=== PATIENT | female | born 1970 | race Caucasian/White ===

== ENCOUNTER 2021-09-06 11:09 | Inpatient (IN) | payer MEDICAID ==
[2021-09-06] VITALS (14 sets, daily range): BP systolic 82–167; BP diastolic 44–91
[~2021-09-06] VITALS: Ht 167.6 cm; Wt 63.0 kg
--- NOTE | 2021-09-06 11:09 | NUR ---
PT MARCELLUS 86 FROM [facility] C/O FEVER AND ELEVATED HEART. PT IS AAOX0, ON VENT VIA TRACH, HOOKED TO HUMAN RESOURCES OFFICER, KEPT RESTED AND COMFORTABLE. WILL CONTINUE TO MONITOR.
--- NOTE | 2021-09-06 11:12 | NUR ---
COOLING MEASURES IN PLACE, INCLUDING ICE PACKS PLACED ON FOREHEAD, GROIN, UNDERARMS. BLANKET PLACED BETWEEN ICE PACKS TO PREVENT SKIN IRRITATION. WILL CONTINUE TO MONITOR AND ROTATE AREAS TO PREVENT SKIN IRRITATION.
[2021-09-06] MEDS ORDERED: ACETAMINOPHEN 650 MG/SUPP.RECT RC ONE ×2 (11:14→11:30)
--- NOTE | 2021-09-06 11:20 | NUR ---
IV LINE ESTABLISHED BLOOD DRAWN AND SENT TO LAB.
--- NOTE | 2021-09-06 11:27 | NUR ---
MOVE SHEET SUBMITTED AND CALLED FOR TELE BED.
[2021-09-06] MEDS ORDERED: IBUPROFEN SUSP 100 MG/5 ML UDC PO ONE (11:30)
[2021-09-06] MEDS ORDERED: IV NS 0.9% 1,000 ML BAG IV ONE ×2 (11:30→13:00)
[2021-09-06] MEDS ORDERED: FERR300L GT (11:32)
[2021-09-06] MEDS ORDERED: CRAN425C6 GT (11:32)
[2021-09-06] MEDS ORDERED: LANS30CA56 GT (11:32)
[2021-09-06] MEDS ORDERED: ACID1TAB12 GT (11:32)
[2021-09-06] MEDS ORDERED: MIDO5TAB4 GT (11:32)
[2021-09-06] MEDS ORDERED: TRAM50TA2 GT (11:32)
[2021-09-06] MEDS ORDERED: DOCU-141 GT (11:32)
[2021-09-06] MEDS ORDERED: ASCO-352 PO (11:32)
[2021-09-06] MEDS ORDERED: BISA10SU11 RC (11:32)
[2021-09-06] MEDS ORDERED: CRAN3875 GT (11:32)
[2021-09-06] MEDS ORDERED: ASPI-1169 GT (11:32)
[2021-09-06] MEDS ORDERED: COLC0.6C3 GT (11:32)
[2021-09-06] MEDS ORDERED: IPRA0.2S9 IH ×2 (11:32)
[2021-09-06] MEDS ORDERED: ATOR10TA GT (11:32)
[2021-09-06] MEDS ORDERED: MAGN400O6 GT (11:32)
[2021-09-06] MEDS ORDERED: CARV3.122 GT (11:32)
[2021-09-06] MEDS ORDERED: ENOX40DI SQ (11:32)
[2021-09-06] MEDS ORDERED: NUTR1PAC14 GT (11:32)
[2021-09-06] MEDS ORDERED: VALP250S4 GT (11:32)
[2021-09-06] MEDS ORDERED: BALS5OIN TP (11:32)
[2021-09-06] MEDS ORDERED: MULT-447 GT (11:32)
[2021-09-06] MEDS ORDERED: NUTR250L58 GT (11:32)
[2021-09-06] MEDS ORDERED: CHLO473M5 MM (11:32)
[2021-09-06] MEDS ORDERED: NA P133E RC (11:32)
[2021-09-06] MEDS ORDERED: ALBU2.5V38 IH ×2 (11:32)
[2021-09-06] MEDS ORDERED: IBUPROFEN SUSP 100 MG/5 ML UDC ONE (11:41)
--- NOTE | 2021-09-06 11:48 | NUR ---
RT RECD PT TRACHED [place] 8 CUFFED VIA EMS FOR SEPSIS, TACHYCARDIA WAS ON MECH VENT ON SUBACUTE PER ORDERED SETTINGS AC 14 450 +5 40% SX THICK YELLOW SMALL SECRETIONS VENT PLUGGED IN RED OUTLET, BAG AND MASK AT HOB WILL CONT TO MONITOR Addendum: 09/06/21 at 1150 by MAKI JUAN RT Amended: Links added.
[2021-09-06] MEDS ORDERED: MEROPENEM 1,000 MG in IV NS 0.9% 50 ML IV ONE (12:00)
[2021-09-06 12:02] LABS: BASOPHILS # (AUTO) 0.1 K/uL (0.0-0.2); BASOPHILS % (AUTO) 0.2 % (0.0-2.0); HEMATOCRIT 46 % (33-45); HEMOGLOBIN 14.9 g/dL (11.5-14.8); LYMPHOCYTES # (AUTO) 0.7 K/uL (0.8-4.8); LYMPHOCYTES % (AUTO) 2.7 % (20.0-44.0); MEAN CORPUSCULAR HGB CONC 33 g/dl (31.0-36.0); MEAN CORPUSCULAR VOLUME 85 fL (82-100); MONOCYTES # (AUTO) 0.2 K/uL (0.1-1.30); MONOCYTES % (AUTO) 0.7 % (2.0-12.0); NEUTROPHILS # (AUTO) 25.9 K/uL (1.8-8.9); NEUTROPHILS % (AUTO) 96.4 % (43.0-81.0); PLATELET COUNT (AUTO) 545 K/uL (150-450); WHITE BLOOD COUNT (AUTO) 26.9 K/uL (4.3-11.0)
--- NOTE | 2021-09-06 12:05 | NUR ---
AVALOS CATHETER CHANGED. 200 ML URINE NOTED ON PREVIOUS AVALOS, RED, CLOUDY.
[2021-09-06] MEDS ORDERED: VANCOMYCIN 1 GM in IV D5W 250 ML IV ONE (12:30)
[2021-09-06 12:31] LABS: ALANINE AMINOTRANSFERASE 12 U/L (12-78); ALBUMIN 2.1 g/dL (3.4-5.0); ALKALINE PHOSPHATASE 145 U/L (46-116); ASPARTATE AMINOTRANSFERASE 38 U/L (15-37); BILIRUBIN,DIRECT 0.5 mg/dL (0.0-0.2); BILIRUBIN,TOTAL 0.9 mg/dL (0.2-1.0); CALCIUM, SERUM 10.6 mg/dL (8.5-10.1); CARBON DIOXIDE 21 mmol/L (21-32); CHLORIDE 100 mmol/L (98-107); CREATININE 1.4 mg/dL (0.6-1.3); GLUCOSE 97 mg/dL (74-106); POTASSIUM 5.7 mmol/L (3.5-5.1); SODIUM SERUM 137 mmol/L (136-145); TOTAL PROTEIN, SERUM 8.5 g/dL (6.4-8.2); UREA NITROGEN, BLOOD 47 mg/dL (7-18)
--- NOTE | 2021-09-06 12:40 | NUR ---
URINE SAMPLE OBTAINED AND SENT TO LAB
--- NOTE | 2021-09-06 12:46 | NUR ---
DR. MCLEOD SPEAKING WITH DR. ANGULO
--- NOTE | 2021-09-06 12:49 | NUR ---
CALLED HOUSE SUP FOR PICC LINE.
--- NOTE | 2021-09-06 13:16 | NUR ---
PHARMACY CALLED X2 FOR VANCOMYCIN. SAID WILL DELIVER.
[2021-09-06 13:40] LABS: BILIRUBIN,URINE MODERATE (NEGATIVE); COLOR,URINE RED (YELLOW); LEUKOCYTE ESTERASE ,URINE LARGE (NEGATIVE); NITRITE, URINE POSITIVE (NEGATIVE); PH,URINE 7.5 (5.0-8.0); PROTEIN,URINE >=300 mg/dl (NEGATIVE); UGLUCOSE 100 MG/DL mg/dL (NEGATIVE); UROBILINOGEN,URINE 0.2 EU/dL (0.2)
--- NOTE | 2021-09-06 14:09 | NUR ---
GOT BED 252
--- NOTE | 2021-09-06 14:20 | NUR ---
REPORT GIVEN TO ALBERTO BOYLE. WILL TAKE PT UP AFTER CT.
[2021-09-06 14:26] LABS: RBC,URINE 51-80 /HPF (0-2)
[2021-09-06 14:27] LABS: WBC,URINE TOO NUMEROUS TO COUN /HPF (0-3)
[2021-09-06 14:28] LABS: BACTERIA,URINE Many /HPF (None Seen); SQUAMOUS EPITHELIAL CELL,UR Moderate /HPF (None Seen)
[2021-09-06] MEDS ORDERED: IBUPROFEN 600 MG TABLET PO PRN (14:30)
--- NOTE | 2021-09-06 14:39 | NUR ---
DID NOT TAKE PT TO CT D/T LOW BP 57/41. AWARE. WILL START LEVOPHED.
--- NOTE | 2021-09-06 14:54 | NUR ---
DR ANGULO AT BEDSIDE INSERTING PICC LINE
[2021-09-06] MEDS ORDERED: NOREPINEPHRINE 8 MG in IV NS 0.9% 250 ML IV ONE (15:00)
[2021-09-06] MEDS ORDERED: NOREPINEPHRINE 8 MG in IV NS 0.9% 242 ML IV ONE (15:00)
[2021-09-06] MEDS ORDERED: IPRATROPIUM NEB FS 0.5 MG/2.5 ML AMPUL.NEB IH PRN (15:30)
[2021-09-06] MEDS ORDERED: TRAMADOL HCL 50 MG TABLET GT PRN (15:30)
[2021-09-06] MEDS ORDERED: ALBUTEROL FS 2.5 MG/3 ML VIAL.NEB IH PRN (15:30)
[2021-09-06] MEDS ORDERED: IV NS 0.9% 100 ML IV SCH (15:30)
[2021-09-06] MEDS ORDERED: NA PHOS,M-B/NA PHOS,DI-BA 1 EA ENEMA RC PRN (15:30)
[2021-09-06] MEDS ORDERED: BISACODYL SUPP (10 MG) 10 MG/SUPP.RECT SUPP.RECT RC PRN (15:30)
[2021-09-06] MEDS ORDERED: MAGNESIUM HYDROXIDE 30 ML UDC GT PRN (15:30)
[2021-09-06] MEDS ORDERED: NOREPINEPHRINE 8 MG in IV NS 0.9% 242 ML IV PRN ×2 (15:30→17:00)
--- NOTE | 2021-09-06 15:30 | NUR ---
BP DROPPING. MONITORING PT ON LEVOPHED. BEFORE TRANSPORT. WAITING FOR RT. Addendum: 09/06/21 at 1621 by MATT BP DROPPING. MONITORING PT ON LEVOPHED TO MAKE SURE BP STABLE BEFORE TRANSPORT. WAITING FOR RT.
--- NOTE | 2021-09-06 15:50 | NUR ---
WAITING FOR RT
--- NOTE | 2021-09-06 16:15 | NUR ---
RN NOTE PATIENT RECEIVED ON THE FLOOR, ON MECHANICAL VENTILATION WITH NO SIGNS OF LABORED BREATHING. BLOOD PRESSURE UNSTABLE AND LOW, PATIENT STARTED ON LEVO DRIP IN ER, TITRATED PER PROTOCOL ON THE FLOOR. PATIENT WITH G TUBE IN PLACE, NO FEEDING ORDERED AT THIS TIME. RIGHT FEMORAL PICC LINE, RIGHT WRIST 20G SL AND LEFT WRIST 20G SL IN PLACE, PATENT WITH NO SIGNS OF INFILTRATION. AVALOS CATH IN PLACE. BED LOCKED AND IN LOWEST POSITION, CALL LIGHT WITHIN REACH, 2 SIDE RAILS UP. WILL CONTINUE TO MONITOR.
[2021-09-06] MEDS ORDERED: IV NS 0.9% 1,000 ML IV PRN (16:30)
[2021-09-06] MEDS ORDERED: FERROUS SULFATE UDC 300 MG/5 ML UDC GT SCH (17:00)
[2021-09-06] MEDS ORDERED: CHLORHEXIDINE GLUCONATE 15 ML UDC MM SCH (17:00)
[2021-09-06] MEDS ORDERED: COLCHICINE 0.6 MG TABLET GT SCH (17:00)
[2021-09-06] MEDS ORDERED: Medication Not On Formulary EA (Cran/Vitc/Mannose/Inulin/Brom (Uti-Stat Liquid) 3,875 MG GT SCH (17:00)
[2021-09-06] MEDS ORDERED: Medication Not On Formulary EA (Cranberry Extract (Cranberry) 425 MG) GT SCH (17:00)
[2021-09-06] MEDS ORDERED: NOREPINEPHRINE 32 MG in IV NS 0.9% 218 ML IV PRN (18:00)
--- NOTE | 2021-09-06 18:28 | NUR ---
RN NOTE TEMPERATURE STABLE, 99.7F AT THIS TIME. WILL CONTINUE TO MONITOR.
--- NOTE | 2021-09-06 18:59 | NUR ---
RN NOTE PATIENT REMAINS IN BED, ON MECHANICAL VENTILATION WITH NO SIGNS OF LABORED BREATHING. LEVO DRIP IN ER, TITRATED PER PROTOCOL ON THE FLOOR, BLOOD PRESSURE CURRENTLY MAINTAINED. PATIENT WITH G TUBE IN PLACE, NO FEEDING ORDERED AT THIS TIME. RIGHT FEMORAL PICC LINE, RIGHT WRIST 20G SL AND LEFT WRIST 20G SL IN PLACE, PATENT WITH NO SIGNS OF INFILTRATION. AVALOS CATH IN PLACE. BED LOCKED AND IN LOWEST POSITION, CALL LIGHT WITHIN REACH, 2 SIDE RAILS UP. ALL NEEDS ATTENDED. WILL ENDORSE TO STRIKER OUT NURSE.
[2021-09-06] MEDS ORDERED: IPRATROPIUM NEB FS 0.5 MG/2.5 ML AMPUL.NEB IH SCH (19:30)
[2021-09-06] MEDS ORDERED: ALBUTEROL FS 2.5 MG/3 ML VIAL.NEB IH SCH (19:30)
--- NOTE | 2021-09-06 19:54 | NUR ---
RN NOTE SPOKE WITH DR. MCLEOD REGARDING PT G-TUBE FEEDING. INFORMED DR. MCLEOD THAT WE DO NOT HAVE PEPTAMEN, AND DR. MCLEOD ORDERED NEPRO AT 40 CC/HR CONTINUOUS AND AN ORDER FOR DIETARY CONSULT. ORDER NOTED AND CARRIED OUT.
--- NOTE | 2021-09-06 19:57 | NUR ---
RN NOTE SPOKE WITH DR. MCLEOD REGARDING PT HR BEING IN 135-150 AND PT HAVING TEMPERATURE. ORDERED METOPROLOL 25 MG GT Q8H, AND TO HOLD IF HR <60, TYLENOL 650 MG Q6H PRN FOR TEMPERATURE, AND TO ADMINISTER MIDODRINE SCHEDULED EVEN THOUGH PATIENT ALREADY ON PRESSORS. ORDER NOTED AND CARRIED OUT.
[2021-09-06] MEDS ORDERED: NEPRO 1,000 ML BOTTLE GT PRN (20:00)
--- NOTE | 2021-09-06 20:09 | NUR ---
RN NOTE SPOKE WITH DR. MCLEOD AND MENTIONED THAT PT IS ALLERGIC TO TYLENOL. DR. ESPINOZA ORDERED TO NOT ORDER TYLENOL AND ADMINISTER MOTRIN PER PRN. MOTRIN ALREADY IN EMAR. WILL PROVIDE COOLING MEASURES WELL. ORDER NOTED AND CARRIED OUT.
[2021-09-06] MEDS: METOPROLOL TARTRATE 25 MG TABLET GT SCH ×2 (20:23→21:00)
--- NOTE | 2021-09-06 20:30 | NUR ---
RN NOTE PT TEMPERATURE NOW 99.4. WILL CONTINUE TO MONITOR FOR ANY CHANGES.
--- NOTE | 2021-09-06 20:55 | NUR ---
RN NOTE SPOKE WITH DR. MCLEOD AND MENTIONED THAT PT DID NOT TOLERATE G-TUBE MEDICATION AND HOW PT HR WAS NOW IN 160S-180S. STAT EKG DONE AND REVEALED ANTERIOR LATERAL LARGE CO. DR. MCLEOD ORDERED METOPROLOL 5MG IVP. ADMINISTERED BY RAILROAD DINING CAR STEWARD/STEWARDESS ED.
[2021-09-06] MEDS ORDERED: LORAZEPAM INJ 2 MG/ML VIAL IV PRN (21:00)
[2021-09-06] MEDS ORDERED: MEROPENEM 1 G in IV NS 0.9% 100 ML IV SCH ×4 (21:00)
[2021-09-06] MEDS ORDERED: IV NS 0.9% 500 ML IV ONE (21:00)
[2021-09-06] MEDS ORDERED: METOPROLOL TARTRATE INJ 5 MG/5 ML AMPUL IVP PRN (21:00)
[2021-09-06] MEDS ORDERED: VALPROIC ACID 250 MG/5 ML UDC GT SCH (21:00)
[2021-09-06] MEDS ORDERED: ONDANSETRON HCL/PF 4 MG/2 ML VIAL IV PRN ×2 (21:00)
[2021-09-06] MEDS ORDERED: MIDODRINE HCL (5MG) 5 MG TABLET GT SCH (21:00)
--- NOTE | 2021-09-06 21:48 | NUR ---
RN NOTE PT WENT INTO SINUS CATY/ASYSTOLE. CODE BLUE ACTIVATED. ALL ACLS PROTOCOLS INITIATED. CODE BLUE FORM IN CHART.
--- NOTE | 2021-09-06 21:59 | NUR ---
RN NOTE PATIENT . PRONOUNCED BY ER PHYSICIAN WOLF GAVIRIA. NO FAMILY TO BE NOTIFIED PER [facility]/NO INFO IN CHART/NO ADVANCE DIRECTIVES. POST MORTEM CARE PROVIDED.
[2021-09-06] MEDS ORDERED: PHENYLEPHRINE 50 MG in IV NS 0.9% 245 ML IV PRN (22:00)
[2021-09-06] MEDS ORDERED: ATORVASTATIN 10 MG TABLET GT SCH (22:00)
[2021-09-07] MEDS ORDERED: EPINEPHRINE (1:10,000) SYRINGE 1 MG/10 ML DISP.SYRIN IVP ONE ×2 (00:59)
[2021-09-07] MEDS ORDERED: CALCIUM CHLORIDE 1,000 MG/10 ML DISP.SYRIN IV ONE ×2 (00:59)
[2021-09-07] MEDS ORDERED: SODIUM BICARBONATE SYR 50 MEQ/50 ML DISP.SYRIN IV ONE (00:59)
[2021-09-07] MEDS ORDERED: NOREPINEPHRINE 8MG/250ML D5W RTU IV ONE (00:59)
[2021-09-07] MEDS ORDERED: VANCOMYCIN 0.75 GM in IV D5W 250 ML IV SCH (01:00)
[2021-09-07] MEDS ORDERED: PANTOPRAZOLE 40 MG VIAL IV SCH (09:00)
[2021-09-07] MEDS ORDERED: ACIDOPHILUS/BULGARICUS 1 EACH TAB.CHEW GT SCH (09:00)
[2021-09-07] MEDS ORDERED: ARGININE/GLUTAMINE/CALCIUM BMB 1 EACH POWD.PACK GT SCH (09:00)
[2021-09-07] MEDS ORDERED: ENOXAPARIN SODIUM 40 MG/0.4 ML DISP.SYRIN SQ SCH (09:00)
[2021-09-07] MEDS ORDERED: ASCORBIC ACID 500 MG TABLET PO SCH (09:00)
[2021-09-07] MEDS ORDERED: MULTIVIT W/MINERALS 1 TAB TABLET GT SCH (09:00)
[2021-09-07] MEDS ORDERED: ASPIRIN 81 MG TAB.CHEW GT SCH (09:00)
== END 2021-09-06 21:59 | DRG 720 ==
LOC: ER 11:11 → ICU 14:38 → UNDODISIN 09-07 01:00
PROVIDERS: ADMIT Internal Medicine; ATTEND Internal Medicine
PROC: 5A1935Z Respiratory Ventilation, Less than 24 Consecutive Hours (ICD-10-PCS; principal; 2021-09-06)
PROC: 5A2204Z Restoration of Cardiac Rhythm, Single (ICD-10-PCS; 2021-09-06)
DX: A41.9 Sepsis, unspecified organism (principal); R65.21 Severe sepsis with septic shock; I21.09 ST elevation (STEMI) myocardial infarction involving other coronary artery of anterior wall; J96.10 Chronic respiratory failure, unspecified whether with hypoxia or hypercapnia; I27.20 Pulmonary hypertension, unspecified; N17.9 Acute kidney failure, unspecified; E87.2 Acidosis; N39.0 Urinary tract infection, site not specified; Z20.822 Contact with and (suspected) exposure to COVID-19; G40.909 Epilepsy, unspecified, not intractable, without status epilepticus; R33.9 Retention of urine, unspecified; Z99.11 Dependence on respirator [ventilator] status; Z93.0 Tracheostomy status; R13.10 Dysphagia, unspecified; Z88.6 Allergy status to analgesic agent; K21.9 Gastro-esophageal reflux disease without esophagitis; F41.9 Anxiety disorder, unspecified; G47.00 Insomnia, unspecified; Z88.1 Allergy status to other antibiotic agents; Z91.040 Latex allergy status; Z79.01 Long term (current) use of anticoagulants; Z86.73 Personal history of transient ischemic attack (TIA), and cerebral infarction without residual deficits; Z93.1 Gastrostomy status; Z79.51 Long term (current) use of inhaled steroids; Z79.82 Long term (current) use of aspirin; I10 Essential (primary) hypertension; J84.10 Pulmonary fibrosis, unspecified; E78.5 Hyperlipidemia, unspecified; E87.5 Hyperkalemia; Z79.899 Other long term (current) drug therapy; F84.0 Autistic disorder; F79 Unspecified intellectual disabilities; F31.9 Bipolar disorder, unspecified
CPT/HCPCS: 36415; 71045-TC; 80048-TC; 80076-TC; 80164-TC; 81001; 83605-TC; 83880; 84484-TC; 85025-TC; 85730-TC; 87040-TC; 87081-TC; 87086-TC; 87186-TC; 92950-TC; A6253; C9803; G0378; J0171; J2185; J3370; J3490; J7030; J7040; J7050; J7060